=== PATIENT | male | born 1935 | race Native Hawaiian/Other Pacific Islander ===

== ENCOUNTER 2016-07-05 08:43 | Outpatient (CLI) | payer OTHER, BC ==
[2016-07-05 08:57] LABS: PLATELET COUNT 180 K/uL (142-355)
[2016-07-05 09:42] LABS: POTASSIUM 4.3 mmol/L (3.6-5.2)
== END 2016-07-06 01:58 | disposition home or self-care (01) ==
LOC: LABW 08:43
PROVIDERS: Internal Medicine
DX: E78.4 Other hyperlipidemia (principal); R00.2 Palpitations; E05.90 Thyrotoxicosis, unspecified without thyrotoxic crisis or storm; C61 Malignant neoplasm of prostate; Z12.5 Encounter for screening for malignant neoplasm of prostate
CPT/HCPCS: 36415; 80053; 80061; 84443; 85027; 86140; G0103

== ENCOUNTER 2017-12-12 08:19 | Outpatient (CLI) | payer OTHER, BC ==
[2017-12-12 09:42] LABS: PLATELET COUNT 186 K/uL (142-355)
[2017-12-12 10:09] LABS: POTASSIUM 3.9 mmol/L (3.6-5.2)
== END 2017-12-12 19:35 | disposition home or self-care (01) ==
LOC: LABW 08:19
PROVIDERS: Internal Medicine
DX: E78.5 Hyperlipidemia, unspecified (principal); E05.90 Thyrotoxicosis, unspecified without thyrotoxic crisis or storm; C61 Malignant neoplasm of prostate; Z79.899 Other long term (current) drug therapy; R73.01 Impaired fasting glucose
CPT/HCPCS: 36415; 80053; 80061; 83036; 84153; 84443; 85027

== ENCOUNTER 2018-09-20 14:08 | Outpatient (CLI) | payer OTHER, BC | END 2018-09-20 19:15 | disposition home or self-care (01) | LOC: MRI 14:08 | DX: M25.552 Pain in left hip (principal) ==

== ENCOUNTER 2018-11-28 12:31 | Outpatient (CLI) | payer OTHER, BC | END 2018-11-28 22:33 | disposition home or self-care (01) | LOC: MRI 12:31 | DX: M53.86 Other specified dorsopathies, lumbar region (principal) ==

== ENCOUNTER 2019-01-08 08:19 | Outpatient (CLI) | payer OTHER, BC ==
[2019-01-08 08:45] LABS: PLATELET COUNT 210 K/uL (142-355)
[2019-01-08 09:16] LABS: POTASSIUM 4.5 mmol/L (3.6-5.2)
== END 2019-01-08 21:50 | disposition home or self-care (01) ==
LOC: LABW 08:19
PROVIDERS: Internal Medicine
DX: Z00.00 Encounter for general adult medical examination without abnormal findings (principal); E78.49 Other hyperlipidemia; E05.80 Other thyrotoxicosis without thyrotoxic crisis or storm; R73.01 Impaired fasting glucose; Z12.5 Encounter for screening for malignant neoplasm of prostate; Z85.46 Personal history of malignant neoplasm of prostate
CPT/HCPCS: 36415; 80053; 80061; 83036; 84153; 84443; 85027

== ENCOUNTER 2019-09-25 15:17 | Outpatient (CLI) | payer OTHER, BC | END 2019-09-25 19:13 | disposition home or self-care (01) | LOC: LAB 15:17 | DX: R07.89 Other chest pain (principal) | CPT/HCPCS: 85379 ==

== ENCOUNTER 2019-09-27 21:44 | Outpatient (CLI) | payer OTHER, BC | END 2019-09-27 22:56 | disposition home or self-care (01) | LOC: LAB 21:44 | DX: R07.89 Other chest pain (principal) | CPT/HCPCS: 84484 ==